=== PATIENT | male | born 1945 | race Caucasian/White ===

== ENCOUNTER 2017-12-13 05:55 | Inpatient (IN) ==
[2017-12-13] MEDS ORDERED: CeFAZolin Syr 2,000MG/20 ML 2,000 MG/20 ML SYRINGE IVPB ONE (06:13)
[2017-12-13] MEDS ORDERED: Ringers Solution, Lactated 1,000 ML IVC SCH ×2 (06:15→10:33)
--- NOTE | 2017-12-13 06:58 | History & Physical Report ---
Date of Encounter: 12/13/17 Time of Encounter: 06:57 24 Hour HP Update - Instructions Instructions: If the History and Physical is less than 30 days old and was completed prior to A.M. admission and or procedure and has NOT been updated on calendar day of procedure please complete this update prior to performing procedure. - Update Patient reports changes in Medical Condition: No Changes in examination, assessment, or condition: No Changes in Medication: No Preop tests/diagnostics Reviewed: Yes Surgery Remains Indicated: Yes Consent for Planned Operative Procedure(s) Verified: Yes - Pre-Operative Checklist Preoperative Checklist Indicated: No Prophylactic Antibiotic Ordered: Yes Is VTE Prophylaxis Indicated?: Yes
[2017-12-13] MEDS ORDERED: Scopolamine Patch 1.5 MG PATCH.TD72 TD ONE (07:08)
--- NOTE | 2017-12-13 07:09 | Anesthesia Evaluation PreOp ---
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; cervical DDD) Other Medical History: Renal (stones), Thyroid Anesthesia History: Problems (nausea) Alcohol Use: none Drug use: none Medications and Allergies Aspirin/Acetaminophen/Caffeine [Excedrin Extra Strength Caplet] 2 tab PO BID [History] Celecoxib [Celebrex] 200 mg PO DAILY 12/13/17 [History] Diclofenac Sodium [Voltaren] 50 mg PO BID 12/13/17 [History] Docusate [Colace] 100 mg PO BID 12/13/17 [History] Gabapentin [Neurontin] 300 mg PO TID 12/13/17 [History] Levothyroxine [Synthroid] 50 mcg PO DAILY 12/13/17 [History] Tramadol HCl [Ultram] 50 mg PO QID PRN 12/13/17 [History] 3 Allergy/AdvReac Type Severity Reaction Status Date / Time shellfish derived Allergy Severe Anaphylaxis Unverified 12/13/17 06:36 - Meds/Allergy Pre-op Review Medications Reviewed: Yes Allergies Reviewed: Yes Beta Blockers on Current Med List: No Anesthesia Exam Last Vital Signs Temp 98.4 F 12/13/17 06:13 Pulse 80 12/13/17 06:13 Resp 18 12/13/17 06:13 BP 143/86 12/13/17 06:13 Pulse Ox 93 12/13/17 06:13 Weight: 78 kg NPO (# of Hours): > 8 hrs - HEENT Pupil (Motor): Pupils equal, EOMI Mallampati: III Teeth: Normal Oral Opening: Greater than 3 - ADOBE LAYER LOC: Oriented ADOBE LAYER Sensory: Deficit: RUE - Cardiac Rhythm: Regular Murmur: None - Pulmonary Breath Sounds: bilateral Clear Respiratory Effort: Symmetrical Anesthesia Assess/Plan ASA Score: 2 Modified Sandy Scale for Level of Consciousness: Cooperative, oriented, and tranquil Anesthetic Plan: General, Regional (Discussed risks of nerve block with pre- existing sensory neuropathy with patient; will still offer nerve block) Monitoring Plan: Standard Monitors Recovery Plan: PACU
[2017-12-13] MEDS ORDERED: ROPIVACAINE HCL/PF 0.5% 30 ML VIAL ONE (07:41)
--- NOTE | 2017-12-13 08:00 | Discharge Summary ---
Orders not resulted at time of discharge: Pending orders 12/13/17 06:58 XR shoulder complete RT [XR] Routine Hemoglobin and Hematocrit [HEME] Routine 12/13/17 07:15 US anesthesia pain block [US] Stat Date of Encounter: 12/15/17 Time of Encounter: 14:02 - Discharge Diagnosis (1) Rotator cuff tear arthropathy of right shoulder Priority: Primary Status: Chronic (2) Status post reverse total replacement of right shoulder Priority: Primary Status: Acute (3) Thyroid disease Priority: Secondary Status: Chronic - Hospital Course Hospital course: Mr. López is a 72 year old male Status post total shoulder replacement discharged home same day - Time Spent with Patient Total time spent providing and/or coordinating discharge services: - Discharge Medications Home Medications: Aspirin/Acetaminophen/Caffeine [Excedrin Extra Strength Caplet] 2 tab PO BID [History] Celecoxib [Celebrex] 200 mg PO DAILY 12/13/17 [History] Diclofenac Sodium [Voltaren] 50 mg PO BID 12/13/17 [History] Docusate [Colace] 100 mg PO BID 12/13/17 [History] Gabapentin [Neurontin] 300 mg PO TID 12/13/17 [History] Levothyroxine [Synthroid] 50 mcg PO DAILY 12/13/17 [History] OxyCODONE Immed Rel [Roxicodone 5 MG] 5 mg PO Q4HR PRN 5 Days #20 tablet [Rx] Tramadol HCl [Ultram] 50 mg PO QID PRN 12/13/17 [History] Allergies/Adverse Reactions: 3 Allergy/AdvReac Type Severity Reaction Status Date / Time shellfish derived Allergy Severe Anaphylaxis Verified 12/15/17 08:32 Primary care physician: Shahzad Briceño, - Patient Status Disposition: Home, Self-Care Condition: Good Functional capacity at discharge: independent ambulation Overall status at discharge: patient is progressing back to baseline - Discharge Instructions Follow Up With: Saundra Rush PAC [Physician Vp Product Marketing] - 12/21/17 11:45 am Shahzad Briceño DO [Primary Care Provider] - Additional Instructions: Discharge Instructions: Total Shoulder Please call [facility] ([phone]), your Primary Care Physician, or report to the Emergency Room if you have any of the following symptoms: Nausea, vomiting, fever greater that 101.5, swelling, chest pain, shortness of breath, increased pain/redness/drainage/odor for your incision site, numbness/ tingling, or any other concerning symptoms. ACTIVITY: Always keep your arm in the sling. Do not raise your arm away from your body. Do not use your arm to help with getting in or out of bed. No weight bearing permitted. Only perform those exercises given to you by your therapist. MEDICATIONS: Upon discharge resume your home medications. Take all the medications as prescribed. Take a stool softener if taking narcotic pain medications. Stool softeners are only effective if you drink enough fluids. Drink 6-8 glass of water or fluids a day, unless this is not allowed for another health problem. Despite using stool softeners, if you haven't had a bowel movement in 3 days, please switch to a gentle laxative. Gentle laxatives are sold over the counter. You should have a bowel movement within 24 hours, if not call the office. You will be discharged from the hospital with a prescription for pain medication. You are encouraged to decrease the use of narcotic pain medication as tolerated. Should you require a refill, please call the office. [facility] prescribes narcotic pain medication for only 4-6 weeks after surgery. If you require pain medication beyond this time period, you may be referred to your Primary Care Physician or to the Pain Clinic for further evaluation. Plan ahead for refills on pain medication as many narcotics either need to be picked up at the office or mailed. It is best to call 48-72 hours in advance of needing a prescription refill so you don't run out of medication. To help control the post-operative pain, you may take NSAIDs (Aleve,Advil, Motrin, Ibuprofen, Naprosyn) or Tylenol as prescribed on the bottle in addition to the pain medication. WOUND CARE: Leave the dressing on for 7-10 days. You may change the dressing if it becomes saturated greater than 50%. Do not get the dressing wet at anytime. Wash your hands with antibacterial soap, rinse and dry prior to any wound care. If you have chaz the visiting nurse or rehab facility can remove the stapes 10-14 days after surgery and place steri-strips across the wound. Leave the steri-strips in place until they fall off on their own. You may let water from the shower run on top of the steri-strips. If you do not have a visiting nurse or rehab facility, you will need to return to the office at 10-14 days for the chaz to be removed. If you have itching or redness around the dressing call the office. FOLLOW-UP: Please follow up with your surgeon in the orthopedic clinic, as scheduled
[2017-12-13] MEDS ORDERED: *HR* Propofol 200 MG/20 ML VIAL IVP ONE (08:14)
[2017-12-13] MEDS ORDERED: *HR* FentaNYL (PF) 100 MCG/2 ML VIAL ONE (08:14)
[2017-12-13] MEDS ORDERED: *HR* Midazolam HCl 2 MG/2 ML VIAL ONE (08:14)
[2017-12-13] MEDS ORDERED: *HR* PHENYLEPHRINE 1,000 MCG/10 ML SYRINGE IVP ONE (08:14)
[2017-12-13] MEDS ORDERED: EPHEDrine 50 MG/ML VIAL ONE (08:14)
[2017-12-13] MEDS ORDERED: *HR* Vasopressin 20 UNIT/ML VIAL ONE (08:19)
--- NOTE | 2017-12-13 08:58 | Orthopedic Operative Note ---
Date of procedure: 12/13/17 Pre-op diagnosis: Right shoulder cuff tear arthropathy Post-op diagnosis: same Procedure: Procedure: Total Shoulder Replacment Reverse, right Estimated blood loss: 200 cc Hardware: Metal and polyethylene replacement: Arthrex large glenoid baseplate, 2 4.5 screws. 1 6.5 screw, 42+4 glenosphere, 10 humeral stem, poly insert 312 metal Exam Under anesthesia: Full motion on stability Procedural Notes: Tear rotator cuff grade 4 arthritic changes humeral head glenoid socket. Operative procedure: The patient was brought to the operating room and placed on the operating room table. After general anesthesia was administered the operative shoulder was examined. Findings were noted. The patient was placed in the modified beachchair position. All pressure points were padded appropriately. And the head was stabilized in the neutral position. The operative extremity was prepped and draped in the sterile surgical fashion. The patient received IV antibiotics prior to skin incision. A standard deltopectoral approach was made to the operative shoulder. Incision was made to the skin and subcutaneous tissue,hemo stasis was obtained with Bovie cautery. Using careful blunt dissection the cephalic vein was identified and mobilized medially. The deltopectoral interval was developed and the clavipectoral fascia was incised. The subscap was released off the lesser tuberosity and tagged with #2 FiberWire suture subscap was irreparable. The humerus was dislocated patient noted to have tear supraspinatus tendon, and the humeral cut was made along the anatomic neck. Patient noted to have grade 4 arthritic changes humeral head. Anterior and posterior Bankart retractors were placed to expose the glenoid. Glenoid noted to have grade 4 arthritic changes. The glenoid guide was seated and the centering hole was made. It was reamed with the appropriate reamer. The large baseplate was seated and secured with ( 2) 4.5 screws and one 6.5 screw. The baseplate was irrigated and dried and the 42+4 Glenosphere was seated and secured with the Lilly taper. The Lilly taper was tested and found to be secure the humerus was redislocated and prepared with the diaphyseal reamers, followed by a broaching process up to the appropriate size 10 in the patient's anatomic version. The metaphyseal reamer was then utilized. Trial reduction found the shoulder to be relocatable. Trial components were removed and the 10 stem was impacted in place in the patient's anatomic version. Trial reduction found the shoulder to be relocatable and stable with the appropriate 12 metal 3 Selam Trial component was removed and the real implants were seated and secured the shoulder was reduced. The shoulder had excellent motion and excellent stability and no evidence of dislocation. The deep tissue was irrigated with pulse irrigation. . The deltopectoral interval was closed with a running #1 PDS suture, subcutaneous tissue was irrigated and closed with 0 PDS suture, the skin was closed with skin chaz. The patient was placed in a sterile dressing, abduction brace and extubated. The patient was then transferred to the recovery room in stable condition. Anesthesia: GETA Surgeon: Eliceo Wren Was there an elementary assistant teacher present: No Estimated blood loss (cc): 200 Condition: stable Disposition: PACU
--- NOTE | 2017-12-13 09:24 | Anesthesia Procedures ---
Date of Encounter: 12/13/17 Time of Encounter: 07:40 Procedures: Anesthesia - Nerve Block Procedure Date: 12/13/17 Time: 07:40 Allergies/Adv Reactions: nkda, shellfish allergy Pre-op Diagnosis: R shoulder pain Surgical Procedure: R total shoulder Checklist: Correct Patient Identifier, Correct procedure, History checked Correct side: Right Blood Thinner: No Monitor Applied: EKG, BP, Pulse Oximetry Supplemental Oxygen via Nasal Cannula (L/min): 2 Sedation: Versed (mg): 1 Sedation: Fentanyl (mcg): 100 Indication: Post Op Analgesia Pre-op Neuro Deficits: Yes (sensory deficits middle 3 fingers, no motor deficits ) Block Type: Supraclavicular Anatomy identified: Yes Visual spread of Local: Yes Neuro Stimulation: No Blood on Needle Aspiration: No Smooth Injection of Local: Yes Pain with Injection of Local: No Prep: Chlorhexadine Needle: 22 x 50 mm Stimuplex Local: Ropivacaine Volume (cc): 30 Number of Attempts: 1 Complications: None/effective block
[2017-12-13 09:41] LABS: Hematocrit 27.9 % (37.5-50.1); Hemoglobin 9.7 g/dL (12.9-16.9)
--- NOTE | 2017-12-13 09:48 | Anesthesia Evaluation Post Op ---
Date of Encounter: 12/13/17 Time of Encounter: 09:47 - Vital Signs Vital Signs: Last Vital Signs Temp 97.2 F L 12/13/17 09:45 Pulse 77 12/13/17 09:45 Resp 16 12/13/17 09:45 BP 124/93 12/13/17 09:45 Pulse Ox 98 12/13/17 09:45 - Lungs Lungs: Clear Ascult./Percussion - Airway Airway: Non-obstructed - Cardiovascular Regular Rate - Mental Status Mental Status: Alert & Oriented, Answers Appropriately - Pain Pain Scale: 1 - Nausea Vomiting Nausea Vomiting: Not Present - Hydration Hydration: Ice chips - Discharge PostOp Status: Transfer Patient to floor
[2017-12-13] MEDS ORDERED: Temazepam 15 MG CAPSULE PO PRN (10:33)
[2017-12-13] MEDS ORDERED: Acetaminophen/Aspirin/Caffeine TABLET PO SCH (10:33)
[2017-12-13] MEDS ORDERED: MOM Conc 10 ML UD.LIQ PO PRN (10:33)
[2017-12-13] MEDS ORDERED: Sennosides 8.6 MG TABLET PO PRN (10:33)
[2017-12-13] MEDS ORDERED: Naloxone 0.4 MG/ML INJ IVP PRN (10:33)
[2017-12-13] MEDS ORDERED: Gabapentin 300 MG CAPSULE PO SCH (10:33)
[2017-12-13] MEDS ORDERED: *HR* OxyCODONE/APAP 5/325 TABLET PO PRN (10:33)
[2017-12-13] MEDS ORDERED: Ondansetron 4 MG/2 ML VIAL IVP PRN (10:33)
[2017-12-13] MEDS ORDERED: traMADol 50 MG TABLET PO PRN (10:33)
[2017-12-13] MEDS: *HR* OxyCODONE Immed Rel 5 MG TABLET PO PRN ×2 (11:38→15:54)
[2017-12-13 12:47] VITALS: BP 99/62
[2017-12-13] MEDS ORDERED: *HR* Enoxaparin 30 MG/0.3 ML SYRINGE SQ SCH ×3 (13:54→18:00)
[2017-12-13] MEDS ORDERED: CeFAZolin Pre 2,000 MG/100 ML 2,000 MG/100 ML BAG IVPB SCH (16:00)
== END 2017-12-13 16:18 | disposition home or self-care (01) | DRG 483 ==
LOC: SAMDAY 05:55 → 3NENU 10:22
PROVIDERS: ADMIT Orthopaedic Surgery; ATTEND Orthopaedic Surgery